=== PATIENT | female | born 1950 | race Hispanic/Latino ===

== ENCOUNTER 2016-09-18 11:22 | Outpatient (CLI) | payer MEDICARE ==
--- NOTE | 2016-09-18 14:21 | Mammography Report ---
BILATERAL MAMMOGRAM: FINDINGS: The breasts are almost entirely fat (<25% glandular). No mass, distortion, suspicious calcification, or skin change is seen. No significant change identified compared to prior exam in March 2011. CAD was utilized. IMPRESSION: Negative mammogram. There is no mammographic evidence of malignancy. RECOMMENDATION: Follow-up per ACS guidelines. BI-RADS CATEGORY: 1 = Negative ACR BI-RADS MAMMOGRAPHIC CODES: 0 = Needs additional imaging evaluation; 1 = Negative; 2 = Benign; 3 = Probably benign; 4 = Suspicious; 5 = Malignant; 6 = Known biopsy-proven malignancy COMMENT: 1. Dense breast tissue, i.e., adenosis, fibrocystic changes, etc., may obscure an underlying neoplasm. 2. Approximately 10% of cancers are not detected with mammography. 3. A negative mammography report should not delay biopsy if a clinically suspicious mass is present. COMMENT: Patient follow-up letters are generated in [employer].
== END 2016-09-18 11:23 | disposition home or self-care (01) ==
LOC: MAMMO 11:22
PROVIDERS: ATTEND Family Medicine
DX: Z12.31 Encounter for screening mammogram for malignant neoplasm of breast (principal)
CPT/HCPCS: 77067; G0202

== ENCOUNTER 2016-10-19 12:23 | Emergency (ER) | payer MEDICARE ==
[2016-10-19] MEDS ORDERED: TYLENOL PO ONE (13:01)
--- NOTE | 2016-10-19 14:37 | XRay Report ---
FINAL REPORT EXAM: XR HIPS BILAT 2V W/PELVIS HISTORY: s/p fall c/o b/l hip pain TECHNIQUE: AP view of pelvis and frog-leg lateral views of bilateral hips. PRIORS: None. FINDINGS: Joint spaces maintained. No apparent fracture or dislocation. Soft tissues grossly unremarkable. IMPRESSION: 1. No acute osseous abnormality.
--- NOTE | 2016-10-19 14:38 | XRay Report ---
FINAL REPORT EXAM: XR WRIST 3+V LT HISTORY: s/p fall ? fracture TECHNIQUE: 3 views of left wrist. PRIORS: None. FINDINGS: Joint spaces maintained. No apparent fracture or dislocation. Soft tissues grossly unremarkable. IMPRESSION: 1. No acute osseous abnormality.
--- NOTE | 2016-10-19 14:43 | XRay Report ---
FINAL REPORT EXAM: XR HAND 3+V LT HISTORY: s/p fall ? fracture TECHNIQUE: 3 views of left hand. PRIORS: None. FINDINGS: Slight cortical irregularity noted in the proximal and ulnar aspect of index finger proximal phalanx without obvious linear lucency. Some surrounding soft tissue edema. No other apparent fracture or dislocation. Mild hyperextension of PIP joints and flexion of DIP joints noted in long and ring fingers may represent chronic contractures. Remainder of soft tissues grossly unremarkable. IMPRESSION: 1. Questionable cortical irregularity and posttraumatic change in left index finger proximal phalanx. Correlation with point tenderness and radiographic followup in 3-5 days may help in further evaluation, as clinically indicated.
[2016-10-19 15:16] VITALS: BP 159/82
--- NOTE | 2016-10-19 15:18 | Emergency Department Report ---
Entered by HILLARY SHEPHERD, acting as scribe for LISA SUÁREZ PA. ED Fall HPI - General Chief Complaint: Fall Stated Complaint: FALL Time Seen by Provider: 10/19/16 12:46 Source: patient, family Mode of arrival: Wheelchair - History of Present Illness Initial Comments: 66 y/o female with PMH of osteoporosis, presents to the ED c/o right hip pain post status fall that occurred today. Associated symptoms include bruising to left hand but she denies LOC, head trauma, lacerations, abrasion, neck pain, back pain, chest pain, abdominal pain and SOB. Patient states she tripped and bruised hand while trying to catch herself. Complaining of right hip discomfort. Pain is described as aching and 2/10 on a severity scale. Patient has experienced similar symptoms in the past and broke her tailbone after fall. No alleviating or aggravating factors. NKDA. Accompanied by her . Patient is ambulatory but states that her right hip feels tight MD Complaint: fall -: This afternoon Fall From: standing When Fall Occurred: [address] Fall Occurred: street Loss of Consciousness: none Prolonged Down Time?: no Symptoms Prior to Fall: none Location: other (right hip) Severity: mild Severity scale (0 -10): 2 Quality: aching Context: tripped/slipped Associated Symptoms: other (bruising to left hand, denies: LOC, head trauma, back pain, laceration). denies: neck pain, chest paint, shortness of breath, abdominal pain - Related Data Previous Rx's Medication Instructions Recorded Last Taken Type Naproxen [Naprosyn TAB] 375 mg PO BID PRN #20 tablet 10/19/16 Unknown Rx Allergies Allergy/AdvReac Type Severity Reaction Status Date / Time No Known Allergies Allergy Unverified 09/18/16 11:22 ED Review of Systems Comment: All other systems reviewed and negative Respiratory: denies: shortness of breath Cardiovascular: denies: chest pain Gastrointestinal: denies: abdominal pain Musculoskeletal: other (right hip pain, denies: neck pain). 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, Thyroid tumor - Social History Smoking Status: Never Smoker Substance Use Type: Non Opiate Pain - Medications Home Medications: Home Medications Medication Instructions Recorded Confirmed Last Taken Type Naproxen [Naprosyn TAB] 375 mg PO BID PRN #20 tablet 10/19/16 Unknown Rx ED Physical Exam - General Limitations: No Limitations General appearance: alert, in no apparent distress - Head Head exam: Present: atraumatic, normocephalic, normal inspection - Eye Eye exam: Present: normal appearance, PERRL, EOMI Pupils: Present: normal accommodation - ENT ENT exam: Present: normal exam, normal orophraynx, mucous membranes moist, TM's normal bilaterally, normal external ear exam - Neck Neck exam: Present: normal inspection, full ROM. Absent: tenderness, meningismus, lymphadenopathy, thyromegaly - Respiratory Respiratory exam: Present: normal lung sounds bilaterally. Absent: wheezes, rales, rhonchi - Cardiovascular Cardiovascular Exam: Present: regular rate, normal rhythm, normal heart sounds. Absent: bradycardia, tachycardia, irregular rhythm, systolic murmur, diastolic murmur, rubs, gallop - GI/Abdominal GI/Abdominal exam: Present: soft, normal bowel sounds. Absent: tenderness, guarding, rebound - Extremities Exam Extremities exam: Present: normal inspection, full ROM, normal capillary refill. Absent: tenderness, pedal edema, joint swelling, calf tenderness - Expanded Upper Extremity Exam Left General: Present: normal inspection. Absent: laceration, abrasion Shoulder Exam: Present: normal inspection, full ROM. Absent: tenderness Upper Arm exam: Present: normal inspection, full ROM. Absent: tenderness Elbow exam: Present: normal inspection, full ROM. Absent: tenderness Forearm Wrist exam: Present: normal inspection, full ROM. Absent: tenderness Hand Wrist exam: Present: normal inspection, full ROM, tenderness (mild tenderness left central palm no snuffbox tenderness), other (left palm contusion ) Neuro motor exam: Present: wrist extension intact, thumb opposition intact, thumb IP flexion intact, thumb adduction intact, fingers 2-5 abduction intact Neurosensory exam: Present: 2-point discrimination, radial nerve intact, ulnar nerve intact, median nerve intact Vascular: Present: normal capillary refill - Expanded Lower Extremity Exam Right Hip exam: Present: normal inspection, full ROM, tenderness Upper Leg exam: Present: normal inspection, full ROM. Absent: tenderness Knee exam: Present: normal inspection, full ROM. Absent: tenderness Lower Leg exam: Present: normal inspection, full ROM. Absent: tenderness Ankle exam: Present: normal inspection, full ROM. Absent: tenderness Foot/Toe exam: Present: normal inspection, full ROM. Absent: tenderness Neuro vascular tendon exam: Present: no vascular compromise Gait: Positive: observed and normal - Back Exam Back exam: Present: normal inspection, full ROM. Absent: tenderness, CVA tenderness (R), CVA tenderness (L), muscle spasm, paraspinal tenderness, vertebral tenderness, rash noted - Neurological Exam Neurological exam: Present: alert, oriented X3 - Psychiatric Psychiatric exam: Present: normal affect, normal mood - Skin Skin exam: Present: warm, dry, intact, normal color - Other Other exam information: Accompanied by her ED Course Vital Signs 10/19/16 10/19/16 12:28 13:44 Temperature 97.6 F Pulse Rate 67 Respiratory 18 18 Rate Blood Pressure 172/96 O2 Sat by Pulse 100 Oximetry ED Medical Decision Making - Medical Decision Making A/P: Hand sprain, hip sprain 1-patient referred to primary care and orthopedics 2-naproxen when necessary 3-given left hand splint with Anurag wrap to stabilize/support MCP joints 4-no fractures hip joints ED Disposition Clinical Impression: Hand sprain Qualifiers: Encounter type: initial encounter Laterality: left Qualified Code(s): S63.92XA - Sprain of unspecified part of left wrist and hand, initial encounter Hip sprain Qualifiers: Encounter type: initial encounter Laterality: right Qualified Code(s): S73.101A - Unspecified sprain of right hip, initial encounter Disposition: TO HOME OR SELFCARE Is pt being admited?: No Does the pt Need Aspirin: No Condition: Stable Instructions: Hand Sprain (ED), RICE Therapy (ED), Hip Sprain (ED) Prescriptions: Naproxen [Naprosyn TAB] 375 mg PO BID PRN #20 tablet PRN Reason: Pain Referrals: PRIMARY CAREMD [Primary Care Provider] - 3-5 Days YUMI DAY MD [Staff Physician] - 3-5 Days Forms: Accompanied Note Time of Disposition: 14:54 This documentation as recorded by the JOAO cortes ELIZABETH,accurately reflects the service I personally performed and the decisions made by ,LISA SUÁREZ PA.
== END 2016-10-19 15:21 | disposition home or self-care (01) ==
LOC: ED 12:23
DX: S63.8X2A Sprain of other part of left wrist and hand, initial encounter (principal); S73.192A Other sprain of left hip, initial encounter; W01.0XXA Fall on same level from slipping, tripping and stumbling without subsequent striking against object, initial encounter; Y93.89 Activity, other specified; Y99.8 Other external cause status; Y92.89 Other specified places as the place of occurrence of the external cause
CPT/HCPCS: 73521

== ENCOUNTER 2017-10-06 10:56 | Outpatient (CLI) | payer MEDICARE ==
--- NOTE | 2017-10-06 14:12 | Mammography Report ---
BILATERAL DIGITAL SCREENING MAMMOGRAM with CAD: 10/06/17 10:56:00 CLINICAL: Routine screening. COMPARISON:09/18/16 and 09/18/11 FINDINGS: The breasts are mostly fatty. A left focal asymmetry requires additional imaging.No architectural distortion or suspicious calcifications.The right breast is negative. IMPRESSION: Left asymmetry requiring further workup. BI-RADS CATEGORY: 0 -- Additional Imaging Evaluation Required RECOMMENDATION: Recall for left mediolateral and spot magnification MLO and CC views and left breast ultrasound if needed. ACR BI-RADS MAMMOGRAPHIC CODES: 0 = Needs additional imaging evaluation; 1 = Negative; 2 = Benign; 3 = Probably benign; 4 = Suspicious; 5 = Malignant; 6 = Known biopsy-proven malignancy COMMENT: 1. Dense breast tissue, i.e., adenosis, fibrocystic changes, etc., may obscure an underlying neoplasm. 2. Approximately 10% of cancers are not detected with mammography. 3. A negative mammography report should not delay biopsy if a clinically suspicious mass is present. COMMENT: Patient follow-up letters are generated via our [employer] application.
== END 2017-10-06 10:57 | disposition home or self-care (01) ==
LOC: MAMMO 10:56
PROVIDERS: ATTEND Family Medicine
DX: Z12.31 Encounter for screening mammogram for malignant neoplasm of breast (principal)
CPT/HCPCS: 77067

== ENCOUNTER 2017-10-24 10:22 | Outpatient (CLI) | payer MEDICARE ==
--- NOTE | 2017-10-24 11:13 | Mammography Report ---
LEFT DIGITAL DIAGNOSTIC MAMMOGRAM : 10/24/17 10:22:00 CLINICAL: Recalled for asymmetry. COMPARISON:10/06/17 screening FINDINGS: Additional mammographic views were performed and are negative. IMPRESSION: Negative Mammogram. BI-RADS CATEGORY: 1 -- Negative RECOMMENDATION: Routine mammographic screening in one year. ACR BI-RADS MAMMOGRAPHIC CODES: 0 = Needs additional imaging evaluation; 1 = Negative; 2 = Benign; 3 = Probably benign; 4 = Suspicious; 5 = Malignant; 6 = Known biopsy-proven malignancy COMMENT: 1. Dense breast tissue, i.e., adenosis, fibrocystic changes, etc., may obscure an underlying neoplasm. 2. Approximately 10% of cancers are not detected with mammography. 3. A negative mammography report should not delay biopsy if a clinically suspicious mass is present. COMMENT: Patient follow-up letters are generated via our [employer] application.
== END 2017-10-24 10:23 | disposition home or self-care (01) ==
LOC: MAMMO 10:22
PROVIDERS: ATTEND Family Medicine
DX: R92.8 Other abnormal and inconclusive findings on diagnostic imaging of breast (principal); I10 Essential (primary) hypertension